=== PATIENT | male | born 1990 | race Caucasian/White ===

== ENCOUNTER 2025-08-05 18:11 | Inpatient (IN) | payer SELFPAY ==
[~2025-08-05] VITALS: Ht 172.7 cm; Wt 69.9 kg
[2025-08-05 19:14] LABS: BASOPHILS % 0.7 % (0.0-2.0); EOSINOPHILS % 0.6 % (0.0-5.0); HEMATOCRIT. 45.6 % (42.0-52.0); HEMOGLOBIN. 15.6 g/dL (14.0-18.0); LYMPHOCYTES % 16.9 % (20.0-50.0); MEAN PLATELET VOLUME 8.9 fl (7.4-10.4); MONOCYTES % 4.1 % (2.0-8.0); NEUTROPHILS % 77.7 % (40.0-76.0); PLATELET 238 x1000/uL (130-400); RED BLOOD CELL COUNT 4.95 mill/uL (4.7-6.1); RED CELL DISTRIBUTION WIDTH 13.5 % (11.6-14.6)
[2025-08-05 19:35] LABS: CREATININE 0.8 mg/dL (0.6-1.3)
[2025-08-05 19:36] LABS: UREA NITROGEN BLOOD 8 mg/dL (9-23)
[2025-08-05 19:53] LABS: ETHANOL BLOOD 443 mg/dL (<10)
[2025-08-05] MEDS: MIDAZOLAM HCL 2 MG/2 ML VIAL IV ONE ×2 (20:44→21:42)
[2025-08-05] MEDS: OLANZAPINE 10 MG/VIAL IM ONE (21:20)
[2025-08-05] MEDS ORDERED: DIPHENHYDRAMINE 50MG/ML VIAL IV ONE (23:00)
[2025-08-05] MEDS: LORAZEPAM 2MG/ML UD SYRINGE IM NR (23:15)
[2025-08-06 01:05] VITALS: O2SAT 98
[2025-08-06] MEDS ORDERED: DOCUSATE SODIUM 100MG CAPSULE PO PRN (01:15)
[2025-08-06] MEDS ORDERED: ACETAMINOPHEN 325MG TABLET PO PRN ×2 (01:15)
[2025-08-06] MEDS ORDERED: MAGNESIUM/ALUMINUM HYDROXIDE/SIMETHICONE 30ML UDC PO PRN (01:15)
[2025-08-06] MEDS ORDERED: LORAZEPAM 2MG/ML UD SYRINGE IV PRN (01:15)
[2025-08-06] MEDS ORDERED: CLONIDINE 0.1MG TABLET PO PRN (01:15)
[2025-08-06] MEDS ORDERED: GUAIFENESIN 200MG/10ML SUGAR FREE UDC PO PRN (01:15)
[2025-08-06] MEDS ORDERED: IPRATROPIUM/ALBUTEROL 0.5-3(2.5)MG/3ML NEB HHN PRN (01:15)
[2025-08-06] MEDS ORDERED: ONDANSETRON HCL 4MG/2ML INJ IV PRN (01:15)
[2025-08-06 02:21] LABS: CREATININE 0.8 mg/dL (0.6-1.3); UREA NITROGEN BLOOD 9 mg/dL (9-23)
[2025-08-06 02:23] LABS: ASPARTATE AMINOTRANSFERASE 33 IU/L (<34); BILIRUBIN TOTAL 0.3 mg/dL (0.1-1.0); PHOSPHORUS 4.0 mg/dL (2.5-4.9); PROTEIN TOTAL 7.3 g/dL (6.0-8.3)
[2025-08-06] MEDS: MVI, ADULT NO.1 10 ML, FOLIC ACID 1 MG, THIAMINE HCL 100 MG in SODIUM CHLORIDE 0.9% 1,0... IV SCH (03:56)
[2025-08-06 05:00] VITALS: BP 131/83; PULSE 67; RESP 18; TEMP 35.862
[2025-08-06] MEDS: MAGNESIUM 2 G PREMIX 50 ML IV NR (05:41)
[2025-08-06 08:00] VITALS: BP 120/69; PULSE 64; RESP 18; TEMP 35.6; O2SAT 98
[2025-08-06] MEDS: PANTOPRAZOLE SODIUM 40 MG/VIAL IV SCH (09:28)
[2025-08-06] MEDS: FOLIC ACID 1MG TABLET PO SCH (09:28)
[2025-08-06] MEDS: THIAMINE HCL 100MG TABLET PO SCH (09:28)
[2025-08-06 12:00] VITALS: BP 124/70; PULSE 69; RESP 18; TEMP 36.1; O2SAT 96
== END 2025-08-06 13:40 | disposition left against medical advice (07) | DRG 52 ==
LOC: ER 18:11 → EDBEDREQ 18:45 → 6WST 23:43 → EDBEDREQSVC 08-06 00:12 → EDBEDREQ 08-06 00:12 → EDBEDREQTM 08-06 00:12 → EDBEDREQDT 08-06 00:12 → ENRESERV 08-06 04:18
PROVIDERS: ADMIT Internal Medicine; ATTEND Internal Medicine
DX: G92.9 Unspecified toxic encephalopathy (principal); E87.0 Hyperosmolality and hypernatremia; F12.10 Cannabis abuse, uncomplicated; F10.129 Alcohol abuse with intoxication, unspecified; K59.00 Constipation, unspecified; Z53.29 Procedure and treatment not carried out because of patient's decision for other reasons; E86.0 Dehydration; E83.42 Hypomagnesemia; Y90.8 Blood alcohol level of 240 mg/100 ml or more; Z78.1 Physical restraint status; Z79.899 Other long term (current) drug therapy
CPT/HCPCS: 36415; 80048; 80053; 80320; 83735; 84100; 85025; 96372; 96374; 96376; 99291; J1200; J2060; J2250; J2470; J3411; J3475; J3490; J7030; G0480